=== PATIENT | male | born 1975 | race African-American/Black ===

== ENCOUNTER 2016-09-06 21:01 | Emergency (ER) | payer OTHER ==
[~2016-09-06] VITALS: Ht 172.7 cm; Wt 73.8 kg
[2016-09-06] MEDS ORDERED: AUGMENTIN875 MG PO (23:20)
[2016-09-06] MEDS ORDERED: ERYTHROMYC1 APPLICAT BOTH EYES (23:20)
[2016-09-06 23:39] VITALS: BP 115/76
== END 2016-09-06 23:39 | disposition home or self-care (01) ==
LOC: EME 21:01
DX: H00.016 Hordeolum externum left eye, unspecified eyelid (principal); H00.013 Hordeolum externum right eye, unspecified eyelid; L03.213 Periorbital cellulitis; H10.9 Unspecified conjunctivitis; F17.200 Nicotine dependence, unspecified, uncomplicated
CPT/HCPCS: 99281; 99284